=== PATIENT | male | born 1990 | race Caucasian/White ===

== ENCOUNTER 2016-12-01 02:28 | Emergency (ER) | payer SELFPAY ==
[~2016-12-01] VITALS: Ht 177.8 cm; Wt 104.5 kg
[~2016-12-01 02:28] MED LIST: PROM25TA5 PO; Z.0.NO CURRENT MEDS
[2016-12-01 02:59] VITALS: BP 146/83; PULSE 90; RESP 18; TEMP 99.3; O2SAT 98
[2016-12-01] MEDS ORDERED: KETOROLAC TROMETHAMINE 30 MG/ML (IVP) VIAL IV PUSH ONE (03:15)
[2016-12-01] MEDS ORDERED: SERT-129 PO (03:17)
--- NOTE | 2016-12-01 03:21 | PD ---
HPI Chief Complaint: Chest Pain Time Seen by Provider: 02:59 Travel History International Travel<30 days: No Contact w/Intl Traveler<30days: No Traveled to known affect area: No History of Present Illness HPI This is a 26-year-old male who presents to the emergency department with several days of right arm pain, constant, moderate severity, described as a aching and a burning in his arm. It doesn't get worse when he moves and nothing really makes it better. He has had a low-grade fever and some chills. He denies any recent injury. He denies any cough or rhinorrhea. He has no pain anywhere else. He adamantly denies IV drug use. 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 They never figured out what was going on. PFSH Past Medical History Asthma: No Autoimmune Disease: No Blood Disorders: No Anxiety: Yes Depression: Yes Cardiovascular Problems: No Diminished Hearing: No Genitourinary: No Musculoskeletal: Yes Neurologic: No Psychiatric: No Respiratory: Yes (RT LUNG CONTUSION WITH SM PNEUMO) Immunizations Current: Yes Tetanus Vaccination: Unknown Influenza Vaccination: No Past Surgical History Other Surgery: No Social History Alcohol Use: Yes (RARELY) Tobacco Use: Yes (VAPES DAILY) Substance Use: No Allergies-Medications (Allergen,Severity, Reaction): Coded Allergies: No Known Allergies (Verified , 12/01/16) Reported Meds & Prescriptions Reported Meds & Active Scripts Active Reported Sertraline (Sertraline HCl) 100 Mg Tab 100 Mg PO DAILY Review of Systems Except as stated in HPI: all other systems reviewed are Neg Physical Exam Narrative GENERAL:Well appearing, no acute distress SKIN: Focused skin assessment warm and dry. HEAD: Atraumatic. Normocephalic. EYES: Pupils equal and round. No injection or drainage. ENT: Moist mucous membranes NECK: Trachea midline. No focal cervical tenderness. CARDIOVASCULAR: Regular rate and rhythm. No murmur appreciated. 2+ right radial pulse with normal capillary refill. RESPIRATORY: Clear to auscultation. Breath sounds equal bilaterally. GASTROINTESTINAL: Abdomen soft, non-tender, nondistended. MUSCULOSKELETAL: No obvious deformities. No pain with range of motion of the right shoulder, elbow or wrist and no focal tenderness to the muscle groups. NEUROLOGICAL: Awake and alert. No obvious cranial nerve deficits. 5 out of 5 strength in the bilateral upper extremities. PSYCHIATRIC: Appropriate mood and affect; insight and judgment normal. Data Data Last Documented VS Vital Signs Date Time Temp Pulse Resp B/P Pulse Ox O2 Delivery O2 Flow Rate FiO2 12/01/16 05:02 81 16 113/65 96 Room Air 12/01/16 02:59 99.3 Orders Complete Blood Count With Diff (12/01/16 03:06) Comprehensive Metabolic Panel (12/01/16 03:06) ^ Insert Iv (12/01/16 03:06) C-Reactive Protein (Crp) (12/01/16 03:06) Ketorolac Inj (Toradol Inj) (12/01/16 03:15) Westergren Sedimentation Rate (12/01/16 03:18) Aldolase (12/01/16 03:18) Sodium Chlor 0.9% 1000 Ml Inj (Ns 1000 M (12/01/16 03:45) Creatine Kinase (Cpk) (12/01/16 03:06) Labs Laboratory Tests Test 12/01/16 03:50 White Blood Count 6.1 TH/MM3 Red Blood Count 4.88 MIL/MM3 Hemoglobin 13.7 GM/DL Hematocrit 41.2 % Mean Corpuscular Volume 84.4 FL Mean Corpuscular Hemoglobin 28.1 PG Mean Corpuscular Hemoglobin 33.3 % Concent Red Cell Distribution Width 12.2 % Platelet Count 248 TH/MM3 Mean Platelet Volume 8.0 FL Neutrophils (%) (Auto) % Lymphocytes (%) (Auto) % Monocytes (%) (Auto) % Eosinophils (%) (Auto) % Basophils (%) (Auto) % Neutrophils # (Auto) TH/MM3 Lymphocytes # (Auto) TH/MM3 Monocytes # (Auto) TH/MM3 Eosinophils # (Auto) TH/MM3 Basophils # (Auto) TH/MM3 CBC Comment AUTO DIFF Differential Total Cells 100 Counted Neutrophils % (Manual) 51 % Band Neutrophils % 1 % Lymphocytes % 32 % Monocytes % 13 % Eosinophils % 3 % Neutrophils # (Manual) 3.2 TH/MM3 Differential Comment FINAL DIFF MANUAL Platelet Estimate NORMAL Platelet Morphology Comment CLUMPED Red Cell Morphology Comment NORMAL Erythrocyte Sedimentation Rate 8 mm/hr Sodium Level 139 MEQ/L Potassium Level 3.9 MEQ/L Chloride Level 103 MEQ/L Carbon Dioxide Level 30.4 MEQ/L Anion Gap 6 MEQ/L Blood Urea Nitrogen 15 MG/DL Creatinine 0.99 MG/DL Estimat Glomerular Filtration 93 ML/MIN Rate Random Glucose 108 MG/DL Calcium Level 8.6 MG/DL Total Bilirubin 0.4 MG/DL Aspartate Amino Transf 26 U/L (AST/SGOT) Alanine Aminotransferase 42 U/L (ALT/SGPT) Alkaline Phosphatase 121 U/L Total Creatine Kinase 87 U/L C-Reactive Protein 1.61 MG/DL Total Protein 7.5 GM/DL Albumin 3.8 GM/DL MDM Medical Decision Making Medical Screen Exam Complete: Yes Emergency Medical Condition: Yes Interpretation(s) Low-grade temperature No leukocytosis 13% monocytes Sedimentation rate is normal, CRP is mildly elevated Electrolytes are reassuring Total CK is normal Differential Diagnosis Muscle strain, cervical radiculopathy, septic arthritis, myositis, rhabdomyolysis Narrative Course This is a 26-year-old male who presents to the emergency department with pain in his right arm. He also has a low-grade temperature 99.3 and he was a little tachycardic when I saw him in the room. His mom reports that he has a history of autoimmune problems. Due to this I performed labs. He has no leukocytosis, his inflammatory markers are reassuring and his CPK is normal. He feels a lot better after Toradol and IV fluids. I think he can be discharged home and I suspect he has a muscle strain Diagnosis Primary Impression: Muscle strain Patient Instructions: General Instructions Additional Instructions: If you develop numbness, weakness, severe pain or fever return to the emergency room. Med/Other Pt SpecificInfo: Prescription(s) given Scripts Naproxen 500 Mg [id number] Mg PO BID PRN (PAIN SCALE 4 TO 10) #20 TAB Prov:Olive Guzman MD 12/01/16 Disposition: 01 DISCHARGE HOME Condition: Stable Olive Guzman MD Dec 01, 2016 03:21
[2016-12-01 03:41] VITALS: BP 108/62; PULSE 90; RESP 18; O2SAT 96
[2016-12-01] MEDS ORDERED: SODIUM CHLOR 0.9% 1000 ML INJ 1,000 ML IV ONE (03:45)
[2016-12-01 04:00] LABS: HEMATOCRIT 41.2 % (39.0-51.0); MEAN CELL VOLUME 84.4 FL (80.0-100.0); MEAN CORPUSCULAR HEMOGLOBIN 28.1 PG (27.0-34.0); MEAN CORPUSCULAR HGB CONC 33.3 % (32.0-36.0); PLATELET COUNT 248 TH/MM3 (150-450); RED BLOOD COUNT 4.88 MIL/MM3 (4.50-5.90); RED CELL DISTRIBUTION WIDTH 12.2 % (11.6-17.2); WHITE BLOOD COUNT 6.1 TH/MM3 (4.0-11.0)
[2016-12-01 04:15] LABS: CHLORIDE 103 MEQ/L (98-107); POTASSIUM 3.9 MEQ/L (3.5-5.1); SODIUM (NA) 139 MEQ/L (136-145)
[2016-12-01 04:18] LABS: ANION GAP 6 MEQ/L (5-15); BICARBONATE 30.4 MEQ/L (21.0-32.0); HEMO FLAGS AUTO DIFF
[2016-12-01 04:19] LABS: BLOOD UREA NITROGEN 15 MG/DL (7-18)
[2016-12-01 04:21] LABS: ALT (GPT) 42 U/L (12-78); AST (GOT) 26 U/L (15-37)
[2016-12-01 04:22] LABS: GLOMERULAR FILTRATION RATE 93 ML/MIN (>89)
[2016-12-01 04:23] LABS: BANDS 1 % (0-6); EOSINOPHILS 3 % (0-4); NEUTROPHIL # MANUAL DIFF 3.2 TH/MM3 (1.8-7.7); POLYS (SEG NEUTROPHILS) 51 % (16-70); TOTAL BILIRUBIN ADULT 0.4 MG/DL (0.2-1.0); WBC DIFF SAMPLE 100
[2016-12-01 04:24] LABS: ALKALINE PHOSPHATASE 121 U/L (45-117); PLATELET ESTIMATE SMEAR NORMAL (NORMAL); PLATELET MORPHOLOGY CLUMPED (NORMAL); SCAN/DIFF FINAL DIFF MANUAL
[2016-12-01 05:02] VITALS: BP 113/65; PULSE 81; RESP 16; O2SAT 96
[2016-12-01 05:48] LABS: CREATINE KINASE 87 U/L (39-308)
[2016-12-01] MEDS ORDERED: NAPR500T PO (05:51)
[2016-12-01 05:56] VITALS: BP 114/60
--- NOTE | 2016-12-01 18:33 | EKG ---
Date Performed: 12/01/2016 Time Performed: 02:58:10 PTAGE: 26 years EKG: Sinus rhythm NON-SPECIFIC ST/T WAVE CHANGES NO PREVIOUS TRACING DOCTOR: Sunil Guadarrama Interpretating Date/Time 12/01/2016 18:33:02
== END 2016-12-01 06:11 | disposition home or self-care (01) ==
LOC: PHED 02:28
DX: S46.911A Strain of unspecified muscle, fascia and tendon at shoulder and upper arm level, right arm, initial encounter (principal); R00.0 Tachycardia, unspecified; X58.XXXA Exposure to other specified factors, initial encounter
CPT/HCPCS: 80053; 82085; 82550; 85007; 85027; 85652; 86140; 93005; 96361; 96374; 99284; J1885; J7030